=== PATIENT | female | born 1945 | race Two or more races ===

== ENCOUNTER 2025-05-03 10:50 | Day surgery (SDC) | payer MEDICAID, SELFPAY ==
--- NOTE | 2025-05-02 06:00 | EKG_ITS ---
[facility] Test Date: 2025-05-02 Pat Name: BRITTANY BOURNE Department: Room: - Gender: Female Can Top Setter: ROSA : 1945 Requested By: Arias Edmondson Order Number: [id number] Reading MD: Arias Edmondson Measurements Intervals [place] Rate: 71 P: ID: QRS: -74 QRSD: 149 T: 105 QT: 418 QTc: 457 Interpretive Statements ELECTRONIC VENTRICULAR PACEMAKER ABNORMAL RHYTHM ECG Compared to ECG 11/10/2021 15:12:23 No significant changes /[id number].pdf
[2025-05-02 11:46] LABS: Alanine Aminotransferase 22 U/L (10-49); Albumin, Serum 2.9 gm/dL (3.4-4.8); Albumin/Globulin Ratio 0.7 (1.2-2.2); Alkaline Phosphatase 133 U/L (46-116); Anion Gap 9 (7-16); Aspartate Amino Transferase 44 U/L (0-34); BUN/Creatinine Ratio 19 Ratio (12-20); Bilirubin,Total 1.4 mg/dL (0.3-1.2); Blood Urea Nitrogen 15 mg/dL (9-23); Calcium 8.2 mg/dL (8.3-10.6); Calcium (Corrected) 9.1 mg/dL (8.5-10.1); Carbon Dioxide 21.6 mMol/L (20.0-31.0); Chloride 107 mMol/L (98-107); Creatinine (Component) 0.8 mg/dL (0.6-1.3); Globulin 3.9 gm/dL (2.3-3.5); Glucose 109 mg/dL (74-106); Osmolality,Calculated 277 (275-295); Potassium 4.0 mMol/L (3.4-5.1); Sodium 138 mMol/L (136-145); Total Protein 6.8 gm/dL (5.7-8.2); eGFR > 60 See Note
[2025-05-03 11:14] VITALS: BP 142/73; PULSE 79; RESP 18; TEMP 36.5; O2SAT 99; BMI 27.7
[2025-05-03] MEDS: RINGERS LACTATED 1000 ML 1,000 ML 20 ML IV (12:55)
[2025-05-03] MEDS: SIMETHICONE 40 MG/0.6 ML ORAL SYRINGE PO (13:35)
[2025-05-03 14:00] VITALS: BP 121/53; PULSE 74; RESP 18; TEMP 36.4; O2SAT 100
--- NOTE | 2025-05-03 14:00 | SUR.PHASEII ---
pt received from OR in recovery bay 1. pt awake and alert, breathing unlabored on room air. v/s stable. report received from Anni RAMOS.
[2025-05-03 14:05] VITALS: BP 132/58; PULSE 72; RESP 14; TEMP 36.4; O2SAT 100
[2025-05-03 14:10] VITALS: BP 116/73; PULSE 63; RESP 12; TEMP 36.4; O2SAT 100
[2025-05-03 14:15] VITALS: BP 131/56; PULSE 63; RESP 12; TEMP 36.5; O2SAT 100
[2025-05-03 14:30] VITALS: BP 124/57; PULSE 67; RESP 12; TEMP 36.5; O2SAT 100
--- NOTE | 2025-05-03 15:00 | SUR.PHASEII ---
pt awake and alert, breathing unlabored on room air. v/s stable. pt able to ambulate to wheelchair with steady gait. d/c instructions given with son and daughter in room, all questions answered. pt d/c via wheelchair with all belongings.
== END 2025-05-03 15:00 | disposition home or self-care (01) ==
PROVIDERS: Anesthesiology; PCP Family Medicine; Referring Provider Internal Medicine Gastroenterology; Visit Provider Internal Medicine Gastroenterology
PROC: (CPT 43239; principal; 2025-05-03 12:15)
PROC: 0DJD8ZZ Inspection of Lower Intestinal Tract, Via Natural or Artificial Opening Endoscopic (ICD-10-PCS; CPT 45378; 2025-05-03 12:15)
DX: K63.89 Other specified diseases of intestine (principal); K70.30 Alcoholic cirrhosis of liver without ascites; K64.9 Unspecified hemorrhoids; Z01.810 Encounter for preprocedural cardiovascular examination; K29.50 Unspecified chronic gastritis without bleeding; I85.10 Secondary esophageal varices without bleeding
CPT/HCPCS: 45380; 45382; 43244; 43239; 36415; 80053; 85025; 93005; A4649; J3490; J7120; A9270